=== PATIENT | male | born 1970 | race Caucasian/White ===

== ENCOUNTER 2018-04-20 07:09 | Day surgery (SDC) | payer BC ==
[2018-04-20] MEDS ORDERED: ceFAZolin 2 GM in Premix Bag 1 BAG IV ONE (07:30)
[2018-04-20] MEDS ORDERED: Sodium Chloride 0.9% 10 ML Syringe FLUSH PRN (07:30)
[2018-04-20] MEDS ORDERED: Lactated Ringers 1,000 ML IV SCH (07:30)
[2018-04-20] MEDS ORDERED: fentaNYL 100 MCG/2 ML SDV IV ONE (08:51)
[2018-04-20] MEDS ORDERED: Lactated Ringers 1,000 ML IV ONE (08:51)
[2018-04-20] MEDS ORDERED: Ketorolac 30 MG/ML SDV IVPUSH ONE (08:51)
[2018-04-20] MEDS ORDERED: Rocuronium 100 MG/10 ML MDV IV ONE (08:51)
[2018-04-20] MEDS ORDERED: Propofol 200 MG/20 ML SDV IV ONE (08:51)
[2018-04-20] MEDS ORDERED: Ondansetron 4 MG/2 ML SDV IVPUSH ONE (08:51)
[2018-04-20] MEDS ORDERED: Midazolam 1 MG/ML 2 ML SDV IV ONE (08:51)
[2018-04-20] MEDS ORDERED: Bupivacaine 0.5% 30 ML SDV INJECT ONE (09:06)
[2018-04-20] MEDS ORDERED: Lidocaine 1% with EPINEPHrine 1:100,000 20 ML MDV INJECT ONE (09:07)
--- NOTE | 2018-04-20 10:05 | PCM.OPNOTE ---
- General Post-Op/Procedure Note Date of Surgery/Procedure: 04/20/18 Operative Procedure(s): rih repair with mesh Findings: direct hernia Pre Op Diagnosis: rih Post-Op Diagnosis: Same Anesthesia Technique: General ET Tube, Local (10 ml 1 5 lido with epi/0.5% buvipicaine) Primary Surgeon: Jesus Alberto Goodman Anesthesia Provider: Demetrius Flores Pathology: sac Complications: None Condition: Good Free Text/Narrative:: see dictation [id number]
--- NOTE | 2018-04-20 16:30 | OR ---
DATE OF OPERATION: 04/20/2018 SURGEON: Jesus Alberto Goodman MD PROCEDURE PERFORMED: Right inguinal hernia repair. PREOPERATIVE DIAGNOSIS: Right inguinal hernia without obstruction or gangrene. POSTOPERATIVE DIAGNOSIS: Right inguinal hernia without obstruction or gangrene. INDICATIONS FOR PROCEDURE: This is a 47-year-old white male with a history of an inguinal hernia, recently became symptomatic, he was offered and accepted repair. INTRAOPERATIVE FINDINGS: The patient had a large hernia with evidence of it is being present long-term. The hernia sac was quite thick up to 2 to 3 mm. This was repaired with a Bard mesh Pre-Shaped with keyhole, size 10 x 4.5 cm, lot number [id number], reference #[id number] with an expiration date of 2021-11-03. A 10 mL of a 1:1 mixture of 1% lidocaine with epinephrine, 0.5% bupivacaine was used for repair. DESCRIPTION OF PROCEDURE: After an excellent general anesthetic was administered, the patient was prepped and draped in usual sterile manner. We started the procedure by creating a field block and our local mixture was used to infiltrate the planned incision site, which basically ran along the line that intercepted long-term point between the anterior-superior iliac spine and the symphysis pubis. After completing this, a skin wheal was then created approximately a fingerbreadth in from the anterior-superior iliac spine and a deep intramuscular injection was carried out. A skin wheal was then created going from this point to the umbilicus and then down along the inguinal ligament. Our incision was then made, the underlying subcu fat was divided using electrocautery. Superficial-inferior epigastric vessels were also clamped and electrocauterized. The aponeurosis of the external oblique was identified and a lavell was made through the aponeurosis, carried out through the external ring. The ilioinguinal nerve was identified and kept out of the operative field. After mobilizing the cord, the cord was then controlled with 1-inch Filipe drain. Cord was then skeletonized. The hernia sac identified, it was incised, and the hernia sac itself was entered and this allowed us to safely transect the sac and dissected down to the internal ring. This was then twisted on itself and closed with a [id number] 0 Ethibond x2. Excess sac was dissected free. The distal end of the sac was then carefully dissected free from the surrounding cord structures and also passed off the field. The repair was then accomplished by placing the keyhole mesh on the floor of the inguinal canal. Starting at the level of the symphysis pubis, this was then tacked along the inguinal ligament from the symphysis pubis to the lateral to the internal ring. The keyhole defect was closed as well with a running 2-0 Prolene. SorbaFix was then used to fix the mesh to the floor of the inguinal canal. At this point, it became readily apparent that the ilioinguinal nerve would be incorporated into the mesh and possibly the pain rather than risk postoperative neuralgia. This was clamped, divided, and tied with 2-0 Vicryl tie. After irrigating the wound, the aponeurosis was closed with a running 3-0 Vicryl. A 3- 0 Vicryl was used to close Arun's fascia, and the skin was closed with a running subcu 4-0 Vicryl. Steri-Strips were applied. Needle, sponge, and instrument counts were reported as correct. The patient was taken to recovery room in good condition. /[id number] /[id number]
== END 2018-04-20 12:38 | disposition home or self-care (01) ==
LOC: FB.SDS 07:09
PROVIDERS: ATTEND Surgery
DX: K40.90 Unilateral inguinal hernia, without obstruction or gangrene, not specified as recurrent (principal); B35.6 Tinea cruris; Z91.040 Latex allergy status; F17.210 Nicotine dependence, cigarettes, uncomplicated
CPT/HCPCS: 49505; C1781; J0690; J1885; J2250; J2405; J2704; J3010; J3490; J7120